=== PATIENT | female | born 1995 | race Caucasian/White ===

== ENCOUNTER 2021-12-28 00:04 | Emergency (ER) | payer OTHER, SELFPAY ==
[2021-12-28 00:27] VITALS: BP 135/82; PULSE 105; RESP 20; TEMP 36.4; O2SAT 99; BMI 32.6
--- NOTE | 2021-12-28 00:48 | CRLHL7_ITS ---
For Patients: As a result of the Century Cures Act, medical imaging exams and procedure reports are released immediately into your electronic medical record. You may view this report before your referring provider. If you have questions, please contact your health care provider. INDICATION: Cough TECHNIQUE: Chest 1 view. COMPARISON: None. FINDINGS: Cardiovascular and mediastinum: Heart size and vasculature are normal in caliber and appearance. Lungs and pleural spaces: Lungs are clear. No sign of infiltrate or mass. No sign of pleural effusion. No pneumothorax. Bones and soft tissues: No significant findings. IMPRESSION: No acute or significant findings. Dictated by Amor Mijares MD @ 12/28/2021 1:45:56 AM (Electronically Signed)
--- NOTE | 2021-12-28 01:02 | ED_ITS ---
HPI - SOB/Dyspnea General Time Seen by Provider: 00:40 Date Seen: 12/28/21 Chief Complaint: Shortness of Breath/Dyspnea Stated Complaint: Respiratory Time Seen by Provider: 12/28/21 00:27 Source: patient, RN notes reviewed and old records reviewed Mode of arrival: ambulatory Limitations: no limitations History of Present Illness HPI Narrative: Alejandra is a very pleasant 26-year-old female vaccinated against COVID otherwise healthy comes to the emergency room for evaluation of cough. Patient notes that this has been going on for approximately 1 week. She initially started with rhinorrhea eyes sore throat and a cough. She feels like she is not getting better today. Today is day 8 of symptoms. She has been using Advil cold and Sinus and DayQuil NyQuil combination and just does not feel any better. She also has loss of taste. She is normally a healthy individual and denies any possibility of . Her son also has similar symptoms that developed 1 day after hers. Patient notes that this evening she was coughing so much she could not catch her breath and this scared her. She states that she feels like she has pneumonia as she has had it before in her life time. She does not get frequently sick and is not a smoker nor does she have asthma. She notes that she is achy and describes her skin hurting. She has had fevers up to 101. MD elicited complaint: shortness of breath and cough Related Data Previous Rx's Medication Instructions Recorded albuterol sulfate 5 mg/mL(0.5 %) 2.5 mg (0.5 mL) INHALATION Q6H PRN 12/28/21 solution for nebulization #30 bottle Allergies Allergy/AdvReac Type Severity Reaction Status Date / Time cefdinir Allergy Severe Anaphylaxis Verified 12/28/21 00:30 levofloxacin [From Levaquin] Allergy Severe Anaphylaxis Verified 12/28/21 00:30 Review of Systems Status of ROS: Reports: 6 or more systems reviewed and unremarkable except as noted in History and below Narrative: Denies a history of hypercoagulable state, recent travel, calf pain or history of DVT or factor 5 in herself or her family. Const: Reports: fever and fatigue Eyes: Denies: change in vision ENMT: Reports: throat pain and hoarseness Cardio: Reports: shortness of breath with exertion; Denies: chest pain, edema or swelling of feet/ankles Resp: Reports: shortness of breath and cough GI: Denies: abdominal pain or vomiting : Denies: painful urination or urinary frequency Endo: Reports: fatigue PFSH PFS Medical History No significant past medical history Surgical History No significant past surgical history Social History Smoking Status: Never smoker Do you use any of these nicotine containing products: None How often do you have a drink containing alcohol: never How often do you have six or more drinks on one occasion: Never AUDIT-C Alcohol total score: 0 Non-prescribed substance use: denies use Exam Const: Vital Signs, click to edit/add: Vital Signs - 24 hr 12/28/21 00:27 12/28/21 02:03 12/28/21 02:12 Temperature 97.6 F 97.6 F 97.6 F Pulse Rate 105 H Pulse Rate [Left P ulse Oximeter] 105 H 95 Respiratory Rate 20 20 20 Blood Pressure 125/78 Blood Pressure [Ri ght Upper Arm] 135/82 125/78 Pulse Oximetry 99 99 Documenting provider has reviewed patient's vital signs: yes Common normals: no apparent distress and oriented x3 General appearance: cooperative Other: Fatigued but nontoxic in appearance. HENMT: Common normals: normocephalic, external ears normal and TM's normal bilaterally Head and scalp: normocephalic Face and sinus: normal facial exam Nose: nares normal External ear: external ears normal Tympanic membrane: TM's normal bilaterally Mouth: oral and palatal mucosa normal Throat: posterior oropharynx abnormal (Slight erythema) Eye: Common normals: PERRL General eye: normal appearance of both eyes Pupil: PERRL Neck & C-Spine: Common normals: full ROM, no lymphadenopathy, supple and no meningeal signs Resp: Common normals: normal respiratory effort and no use of accessory muscles Effort & inspection: no audible wheezes Auscultation: diminished lung sounds (Right lower lung field) on the right Cardio: Common normals: regular rate (90-100) and regular rhythm Rate: regular rate (90-100) Rhythm: regular rhythm GI: Common normals: soft to palpation and non-tender Palpation: soft : Common normals: no CVA tenderness Bladder/kidney exam: no CVA tenderness Back & Pelvis: Common normals: no CVA tenderness Extremity: Common normals: normal to inspection, full ROM, no calf tenderness and no pedal edema Neuro: Common normals: oriented x3 Meningeal signs: no meningeal signs Psych: Common normals: mental status grossly normal Skin: Common normals: no rashes or lesions noted General skin exam: no rashes or lesions noted Course Course Hospital Course: Patient is presenting with 8 days of respiratory and URI symptoms now with increased coughing and production. Patient has had fevers up to 101. Will test patient for COVID as this is strongly suspicious for that. Will also obtain chest x-ray as lung sounds are diminished on the right. With elevated heart rate also consider possible PE the patient has very reassuring O2 saturations as well as negative Wells criteria with no evidence of lower extremity edema calf tenderness history of DVT or hypoxia. Vital Signs Vital signs: Initial Vital Signs Temperature 97.6 F 12/28/21 00:27 Temperature Source Temporal Artery Scan 12/28/21 00:27 Pulse Rate 105 H 12/28/21 00:27 Respiratory Rate 20 12/28/21 00:27 Blood Pressure 135/82 12/28/21 00:27 Blood Pressure Mean 99 12/28/21 00:27 Blood Pressure Position Sitting 12/28/21 00:27 Pulse Oximetry 99 12/28/21 00:27 Oxygen Delivery Method 12/28/21 00:27 Vital Signs Temperature 97.6 F 12/28/21 00:27 Pulse Rate 105 H 12/28/21 00:27 Respiratory Rate 20 12/28/21 00:27 Blood Pressure 135/82 12/28/21 00:27 Pulse Oximetry 99 12/28/21 00:27 Temperature 97.6 F 12/28/21 02:12 Pulse Rate 105 H 12/28/21 02:12 Respiratory Rate 20 12/28/21 02:12 Blood Pressure 125/78 12/28/21 02:12 Pulse Oximetry 99 12/28/21 02:03 MDM - SOB/Dyspnea MDM Narrative Medical decision making narrative: 1. Clinical pneumonia-patient has a clear x-ray but markedly different breath sounds noted on auscultation. She has tested negative for COVID and therefore I will treat with antibiotics. Zithromax 500 mg today followed by 250 mg daily for 4 days. This is through [facility] Would also recommend the use of a nebulizer up to 4 times daily as needed. Handwritten prescription for nebulizer as well as the Adult mask is given to patient. Albuterol 2.5 mg/3 males number 30 sent to [facility]. Return/seek medical attention for worsening symptoms. 2. Disposition-home with . Recommend rest and pushing fluids. Note for no work today or tomorrow. Medical Records Attestation: I reviewed the patient's medical records. Lab Data Attestation: I reviewed the patient's lab results. Labs: Lab Results 12/28/21 Range/Units 00:50 SARS-CoV-2 (PCR) Negative SARS-CoV-2 (Negative) Influenza Type A (PCR) Negative PCR FLU A (Negative) Influenza Type B (PCR) Negative PCR FLU B (Negative) Imaging Data Chest x-ray: Attestation: I have reviewed the pertinent imaging results. My impression: I did not know any acute findings on the chest x-ray. Radiologist's impression: No acute findings Discharge Plan Discharge Clinical Impression: Acute lower respiratory infection Patient Disposition: Home, Self-Care Condition: Unchanged Additional Instructions: Suggest starting Zithromax tonight for the treatment of clinical pneumonia even though your chest x-ray looked clear. Recommend pushing fluids as much as possible. Delsym may be used as needed for cough. If you have ongoing or worsening symptoms return to the emergency room for evaluation and possible blood work. Nebulizer as needed up to 4 times a day for wheezing or coughing. Recommend using this 2 hours prior to bedtime. Activity Level: No Restrictions Prescriptions: New albuterol sulfate 5 mg/mL solution for nebulization 2.5 mg inhalation Q6H PRNQty: 30 0RF Follow Up/Referrals: Provider,Not a Local [Primary Care Provider] - Stand Alone Forms: [employer] Info Instructions
[2021-12-28 01:37] LABS: PCR FLU A Negative PCR FLU A (Negative); PCR FLU B Negative PCR FLU B (Negative)
[2021-12-28 01:40] LABS: SARS PCR* Negative SARS-CoV-2 (Negative)
[2021-12-28 02:03] VITALS: BP 125/78; PULSE 95; RESP 20; TEMP 36.4; O2SAT 99
[2021-12-28 02:12] VITALS: BP 125/78; PULSE 105; RESP 20; TEMP 36.4
== END 2021-12-28 02:12 | disposition home or self-care (01) ==
PROVIDERS: Emergency Provider Family Medicine
DX: J18.9 Pneumonia, unspecified organism (principal)
CPT/HCPCS: 71045; 87502; 87635; 99283; 99284

== ENCOUNTER 2022-08-22 03:37 | Emergency (ER) | payer OTHER, SELFPAY ==
[2022-08-22] VITALS (9 sets, daily range): BP systolic 106–126; BP diastolic 64–82; PULSE 84–108; RESP 16; TEMP 36.7; O2SAT 97–100; BMI 32.6
[2022-08-22 03:59] LABS: Appearance Urine Clear (Clear); Bilirubin Urine Negative (Negative); Blood Urine Trace-intact (Negative); Color Urine Yellow (Yellow); Glucose Urine Negative (Negative); Ketones Urine 1+ (Negative); Leukocyte Esterase Urine Negative (Negative); Nitrite Urine Negative (Negative); Protein Urine 2+ (Negative); Specific Gravity Urine 1.025 (1.000-1.030); Urobilinogen Urine 0.2 (0.2-1.0); pH Urine 6.5 (5.0-8.5)
[2022-08-22] MEDS: 0.9 % SODIUM CHLORIDE 1000 ml 1,000 ML IV (04:02)
[2022-08-22 04:11] LABS: Bacteria Urine Few; Mucus Urine Few; RBC Urine 0-2 (0-2); Squamous Epithelial Cell Urine Few (None-Few)
[2022-08-22 04:43] LABS: PCR FLU A Negative PCR FLU A (Negative); PCR FLU B Negative PCR FLU B (Negative)
[2022-08-22 04:49] LABS: SARS PCR* Negative SARS-CoV-2 (Negative)
[2022-08-22] MEDS: METOCLOPRAMIDE HCL 10 MG in 0.9 % SODIUM CHLORIDE 100 ml 100 ML 306 MG IVPB (05:00)
[2022-08-22] MEDS: LORazepam 2 MG/ML inj 0.5 MG IVP (06:02)
--- NOTE | 2022-08-22 06:20 | ED.GENADULT ---
HPI - General Adult General Chief complaint: Nausea/Vomiting Stated complaint: nausea Time Seen by Provider: 08/22/22 03:42 History of Present Illness HPI narrative: 27-year-old young woman arrives emergency department via EMS due to vomiting. Has not had any fever. She describes the vomiting is intense and aggressive. Started last night. She is approximately 8 weeks and has been nauseated for good portion of the time but not vomited until now. No hematemesis is described. Is not having significant abdominal pain. No shortness of breath. No vaginal bleeding or spotting. No dysuria. Related Data Home Medications Medication Instructions Recorded Confirmed No Known Home Medications 08/22/22 08/22/22 Allergies Allergy/AdvReac Type Severity Reaction Status Date / Time cefdinir Allergy Severe Anaphylaxis Verified 08/22/22 03:43 levofloxacin [From Levaquin] Allergy Severe Anaphylaxis Verified 08/22/22 03:43 [facility] Medical History (Updated 08/22/22 @ 06:29 by Ranjit Vitale MD) Post traumatic stress disorder Surgical History (Updated 08/22/22 @ 03:47 by Trish Plummer RN) History of Social History Smoking Status: Never smoker Do you use any of these nicotine containing products: None How often do you have a drink containing alcohol: never How often do you have six or more drinks on one occasion: Never AUDIT-C Alcohol total score: 0 Non-prescribed substance use: denies use Exam Narrative: Exam Narrative: Makeup in place 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 Blunt or flattened affect. Distracted. Looks uncomfortable. Abdomen is nontender. Soft. Is breathing easily. Oropharynx is sticky. Skin is warm and dry. Lungs clear. Heart in elevated rate with regular rhythm. No murmur rub or gallop identified. Well perfused peripherally. She is not cramping. Const: Vital Signs, click to edit/add: Vital Signs - 24 hr 08/22/22 03:40 08/22/22 04:00 08/22/22 04:02 Temperature 98.1 F Pulse Rate 100 101 H Pulse Rate [Left P ulse Oximeter] 98 Respiratory Rate 16 16 16 Blood Pressure 120/75 114/76 Blood Pressure [Ri ght Upper Arm] 125/81 Pulse Oximetry 98 99 100 Oxygen Delivery Me thod Room Air 08/22/22 04:32 08/22/22 05:02 08/22/22 04:00 Temperature Pulse Rate 89 98 Pulse Rate [Left P ulse Oximeter] Respiratory Rate 16 16 Blood Pressure 118/82 122/71 Blood Pressure [Ri ght Upper Arm] Pulse Oximetry 100 98 Oxygen Delivery Me thod 08/22/22 05:32 08/22/22 06:01 08/22/22 06:31 Temperature Pulse Rate 84 108 H 84 Pulse Rate [Left P ulse Oximeter] Respiratory Rate 16 16 16 Blood Pressure 126/80 106/64 117/73 Blood Pressure [Ri ght Upper Arm] Pulse Oximetry 97 Oxygen Delivery Me thod 08/22/22 06:53 Temperature 98.1 F Pulse Rate Pulse Rate [Left P ulse Oximeter] 98 Respiratory Rate 16 Blood Pressure Blood Pressure [Ri ght Upper Arm] 125/81 Pulse Oximetry Oxygen Delivery Me thod Course Vital Signs Vital signs: Initial Vital Signs Temperature 98.1 F 08/22/22 03:40 Temperature Source Temporal Artery Scan 08/22/22 03:40 Pulse Rate 98 08/22/22 03:40 Pulse Rhythm 08/22/22 03:40 Respiratory Rate 16 08/22/22 03:40 Blood Pressure 125/81 08/22/22 03:40 Blood Pressure Mean 95 08/22/22 03:40 Blood Pressure Position Sitting 08/22/22 03:40 Pulse Oximetry 98 08/22/22 03:40 Oxygen Delivery Method 08/22/22 03:40 Vital Signs Temperature 98.1 F 08/22/22 03:40 Pulse Rate 98 08/22/22 03:40 Respiratory Rate 16 08/22/22 03:40 Blood Pressure 125/81 08/22/22 03:40 Pulse Oximetry 98 08/22/22 03:40 Oxygen Delivery Method 08/22/22 03:40 Temperature 98.1 F 08/22/22 06:53 Pulse Rate 98 08/22/22 06:53 Respiratory Rate 16 08/22/22 06:53 Blood Pressure 125/81 08/22/22 06:53 Pulse Oximetry 97 08/22/22 06:01 Oxygen Delivery Method 08/22/22 03:40 Medical Decision Making MDM Narrative Medical decision making narrative: Given Zofran, normal saline IV. Still with nausea given Reglan piggyback. Appears to me that this is vomiting in or possible infectious gastritis I just do not feel right. Alternating hot and cold she said and still quite nauseated as standing hunched over semi seated on the bed. Did review records. PTSD is in diagnosis as well. Lorazepam IV ultimately appeared to be most effective. Tolerated apple juice, Manny crackers and felt she could depart home. Lab Data Lab results reviewed: Yes I reviewed the patient's lab results Labs: Lab Results 08/22/22 08/22/22 Range/Units 03:50 04:00 Urine Color Yellow (Yellow) Urine Appearance Clear (Clear) Urine pH 6.5 (5.0-8.5) Ur Specific [place] 1.025 (1.000-1.030) Urine Protein 2+ A (Negative) Urine Glucose (UA) Negative (Negative) Urine Ketones 1+ A (Negative) Urine Blood Trace-intact A (Negative) Urine Nitrite Negative (Negative) Urine Bilirubin Negative (Negative) Urine Urobilinogen 0.2 (0.2-1.0) Ur Leukocyte Esterase Negative (Negative) Urine RBC 0-2 (0-2) Urine WBC 2-5 (0-5) Ur Squamous Epith Cells Few (None-Few) Urine Bacteria Few A (None) Urine Mucus Few A (None) SARS-CoV-2 (PCR) Negative SARS-CoV-2 (Negative) Influenza Type A (PCR) Negative PCR FLU A (Negative) Influenza Type B (PCR) Negative PCR FLU B (Negative) Discharge Plan Discharge Clinical Impression: Vomiting during , Dehydration Patient Disposition: Home w/ Parent or Adult Condition: Improved Additional Instructions: Focus on hydration. Jell-O. Popsicles. Slow advance of diet over the next 24-36 hours. Diluted juices, soup broths. Then thicker soups. Rice. [place]. Crackers. Urine culture is pending here. Aminta from [employer]. Prescriptions: No Action No Known Home Medications Follow Up/Referrals: Provider,Not a Local [Primary Care Provider] - Stand Alone Forms: [facility] Info Instructions
== END 2022-08-22 07:02 | disposition home or self-care (01) ==
PROVIDERS: Emergency Provider Family Medicine
DX: R11.10 Vomiting, unspecified (principal); Z3A.08 8 weeks gestation of pregnancy; E86.0 Dehydration
CPT/HCPCS: 81001; 81003; 81015; 87086; 87631; 94761; 96365; 96375; 99283; 99284; J2060; J2765; J7030

== ENCOUNTER 2025-03-16 10:25 | Emergency (ER) | payer OTHER, SELFPAY ==
--- OUTSIDE RECORDS SUMMARY | 2025-03-15 15:10 | XMS_ITS | Encounter Summary ---
Author Organization [facility] Address [address], [place] [address] Care Team Providers Care Nuclear Auxiliary Operator Name Role Phone No Primary/Referring, Phy Primary Care Provider Unavailable Reason for Visit * Reason Comments Forms/Letter Entered automaticall y based on patient selection in [address] Encounter Details Date Type Department Care Team (Late st Contact Info) Description 03/15/2025 3:10 PM CDT E-Visit [facility] [address] [place] [id number] Shannan Turner APRN, DEDE [address] [place] [address] Chief Comp: Forms/Letter Social History Tobacco Use Types Packs/Day Years Used Date Smoking Tobacco: Never Smokeless Tobacco: Never Alcohol Use Standard Drinks/Week Comments Not Currently 0 (1 standard drink = 0.6 oz pur e alcohol) social PHQ-2 Answer Date Recorded PHQ-2 Score 3 06/29/2020 Depression Answer Date Recor ded Last EPDS Total Score 24 07/18/2024 Last EPDS Self Harm Result Not on file 07/18 Comments No Sex and Gender Information Value Date Recorded Sex Assigned at Not on file Legal Sex Female 11:56 AM TAILING HAND Gender Identity Not on file Sexual Orientation Not on file 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 If she is establishing care, she needs to be seen in person and for screened by RNs for 1st OB. D. BANDAR Turner CNM documented in this encounter Plan of Treatment Upcoming Encounters Date Type Department Care Team (Late st Contact Info) Description 03/18/2025 2:20 PM CDT Telemedicine [facility] [address] [place] [address] Shannan Turner APRN, CNM [address] [place], [place] [id number] documented as of this encounter Visit Diagnoses Not on filedocumented in this encounter Care Teams Nuclear Auxiliary Operator Relationship Specialty Start Date End Date No Primary/Referring, Phy PCP - General 10/31/18 documented as of this encounter
--- OUTSIDE RECORDS SUMMARY | 2025-03-16 10:28 | XMS_ITS | Clinical Summary ---
Author Organization [facility] Address [address] [place] [id number] Care Team Providers Care Embroidery Worker Name Role Phone Pcp, No Primary Care Provider Unavailabl e Allergies Active Allergy Reactions Criticality Noted Date Comments Cefazolin Anaphylaxis High 07/03/2018 Levofloxacin Anaphylaxis,*Unknown ,*Unk nown - Follow up needed High 11/01/2015 Couldn't hear or see Medications No known medications Active Problems Problem Noted Date Diagnosed Date Regular astigmatism of both eyes 08/01/2023 Social History Tobacco Use Types Packs/Day Years Used Date Smoking Tobacco: Never Smokeless Tobacco: Never Comments No Sex and Gender Information Value Date Recorded Sex Assigned at Not on file Legal Sex Female 10:08 AM CDT Gender Identity Not on file Sexual Orientation Not on file Obstetrics History Last Filed Vital Signs Vital Sign Reading Time Taken Comments Blood Pressure 134/90 05/06/2016 11:24 AM SCRAP PREPARATION SUPERVISOR Pulse 82 05/06/2016 11:24 AM SCRAP PREPARATION SUPERVISOR Temperature 37.1 C (98.8 F) 05/06/2016 11:24 AM SCRAP PREPARATION SUPERVISOR Respiratory Rate 14 05/06/2016 11:24 AM SCRAP PREPARATION SUPERVISOR Oxygen Saturation 95% 05/06/2016 11:24 AM SCRAP PREPARATION SUPERVISOR Inhaled Oxygen Concentration - - Weight - - Height - - Body Mass Index - - Plan of Treatment Health Maintenance Due Date Last Done Comments Tetanus booster 2004 Depression screening for age 12+ 2005 HIV for age 15-65 2008 BMI (ht and wt on same day) for age 18+ 2011 Hepatitis C screening for ag e 18-79 2011 Hepatitis B series for 19+ ( 1 of 3 - 19+ 3-dose series) 2012 Pap test for age 21-65 2014 HPV series for age 9-45 (1 - 3-dose SCDM series) 2020 COVID-19 vaccine series (2023- season) 2025 Influenza Vaccine (#1) 2025 RSV vaccine for adults or (1 - 1-dose 75+ series) 2068 Pneumococcal series for age 6-49 Aged Out No longer eligible based on patient's age to complete this topic Insurance [id number] [id number] Care Teams Embroidery Worker Relationship Specialty Start Date End Date Pcp, No . PCP - General 12/14/15
--- OUTSIDE RECORDS SUMMARY | 2025-03-16 10:28 | XMS_ITS | Clinical Summary ---
Author Organization [facility] Address [address] [place] [address] Care Team Providers Care Cardiopulmonary Specialist Name Role Phone [facility] Primary Care Provider Shari Davis MD Unavailable ProviderCarie MD Unavailable Unavailable Allergies Active Allergy Reactions Criticality Noted Date Comments Cefazolin Anaphylaxis High 07/03/2018 Cefprozil Anaphylaxis,Difficul ty breathing High 10/31/2018 Cefuroxime 02/05/2020 Cephalexin Unknown 11/01/2015 Couldn't see of hear Levofloxacin Anaphylaxis,Other (S ee Comments),Difficulty breathing,Unknown High 11/01/2015 Couldn't hear or see Couldn't hear or see Medications vitamin iron-folic acid 27mg-0.8mg ( S) 27 mg iron- 800 mcg Tab tablet [ VITAMIN IRON-FOLIC ACID 27MG-0.8MG ( S) 27 MG IRON- 800 MCG TAB TABLET] Take 1 tablet by mouth daily. 1 Active acetaminophen (TYLENOL) 325 MG tabletIndication s:Delivery by emergency section Take 1-2 tablets (325-650 mg) by mouth every 6 hours as needed for mild pain 3 Active ibuprofen (ADVIL/MOTRIN) 800 MG tabletIndication s:Previous delivery, antepartum condition or complication Take 1 tablet (800 mg) by mouth every 6 hours 60 tablet 1 3 Active oxyCODONE (ROXICODONE) 5 MG tabletIndication s:Previous delivery, antepartum condition or complication Take 1-2 tablets (5-10 mg) by mouth every 6 hours as needed for moderate to severe pain 16 tablet 10/28/202 3 Active Additional Information Patient not taking.Reported on 12/18/2023 simethicone (MYLICON) 80 MG chewable tabletIndication s:Previous delivery, antepartum condition or complication Take 1 tablet (80 mg) by mouth 4 times daily as needed for other (gas) 3 Active Additional Information Patient not taking.Reported on 12/18/2023 senna-docusate (SENOKOT-S/PERIC OLACE) 8.6-50 MG tabletIndication s:Previous delivery, antepartum condition or complication Take 2 tablets by mouth 2 times daily as needed for constipation 3 Active Additional Information Patient not taking.Reported on 12/18/2023 fluticasone (FLONASE) 50 MCG/ACT nasal sprayIndications :Acute bronchitis, unspecified organism [place] 1 spray into both nostrils daily 9.9 mL 4 Active Active Problems Problem Noted Date Diagnosed Date Previous delivery, antepartum condition or complication 04/06/2023 Anxiety 04/06/2023 Obesity affecting in third trimester 0 10/04/2020 delivery delivered 10/03/2020 Preeclampsia, unspecified trimester 09/30/2020 Resolved Problems Problem Noted Date Diagnosed Date Resolved Date 09/30/2020 10/03/2020 Immunizations Immunization Administration Dates Next Due COVID-19 Monovalent 12+ (Pfizer 2021) 07/27/2021 ,07/07/2021 DTAP (<7y) 05/15/1995, 4,1993,05/24 HPV9 (Gardasil) 09/15/2008,03/01/2008,12/23/2007 Hepatitis B, Peds (Engerix-B/Recombivax HB) 1993,1993,1993 Influenza Vaccine >6 months,quad, PF 04/06/2023, 03/24/2020,02/25/2020 MMR (MMRII) 01/16/2006,09/04/1994 Meningococcal ACWY (Menactra ) 01/16/2006 Meningococcal Mcv4 Conjugate,unspecified 01/16/2006 Poliovirus, inactivated (IPV) 05/15/1995 ,03/22/1994,1993,05/24 TDAP (Adacel,Boostrix) 01/14/2023,07/04/2020 Varicella (Varivax) 09/14/2002 Social History Tobacco Use Types Packs/Day Years Used Date Smoking Tobacco: Never Smokeless Tobacco: Never Alcohol Use Standard Drinks/Week Comments Not Currently 0 (1 standard drink = 0.6 oz pur e alcohol) [place] Depression Scale Answer Date Recorded Last EPDS Total Score Not on file 04/06/2023 The thought of harming myself has occurred to me . Never 04/06/2023 Adolescent Education Answer Date Record ed Getting School Help Needed Not on file 03/02 Interpersonal Safety Answer Date Record ed Do you feel physically and e motionally safe where you currently live? Yes 12/18/2023 Within the past 12 months, h ave you been hit, slapped, kicked or otherwise physically hurt by someone? No 12/18/2023 Within the past 12 months, h ave you been humiliated or emotionally abused in other ways by your partner or ex-partner? No 12/18/2023 Comments No Sex and Gender Information Value Date Recorded Sex Assigned at Not on file Legal Sex Female 10:48 PM CDT Gender Identity Not on file Sexual Orientation Not on file Last Filed Vital Signs Vital Sign Reading Time Taken Comments Blood Pressure 130/86 12/18/2023 1:33 PM CDT Pulse 91 12/18/2023 1:33 PM CDT Temperature 36.7 C (98.1 F) 12/18/2023 1:33 PM CDT Respiratory Rate 16 12/18/2023 1:33 PM CDT Oxygen Saturation 97% 12/18/2023 1:33 PM CDT Inhaled Oxygen Concentration - - Weight 84.4 kg (186 lb) 12/18/2023 1:33 PM CDT Height 162.6 cm (5' 4) 12/18/2023 1:33 PM CDT Body Mass Index 31.93 12/18/2023 1:33 PM CDT Plan of Treatment Health Maintenance Due Date Last Done Comments ADVANCE CARE PLANNING 1993 ANNUAL REVIEW OF HM ORDERS 1993 YEARLY PREVENTIVE VISIT 10/05/2017 10/05/2016 PAP 02/24/2023 02/25/2020 PHQ-2 (once per calendar year) 2024 COVID-19 VACCINE ( season) 2025 07/27/2021, 07/07/2021 INFLUENZA VACCINE (#1) 2025 , 03/24/2020, 02/25/2020 DTAP/TDAP/TD VACCINE (7 - Td or Tdap) 01/14/2033 01/14/2023, 07/04/2020, 05/15/1995, Additional history exists ZOSTER VACCINE (1 of 2) 2043 HEPATITIS B VACCINE Completed 1993, 1993, 1993 MENINGITIS VACCINE Aged Out 01/16/2006, 01/16/2006 No longer eligible based on patient's age to complete this topic HPV VACCINE Completed 09/15/2008, 02/09, 12/23/2007 HEPATITIS C SCREENING Completed 07/04/2020 HIV SCREENING Completed 08/30/2022, 02/25/2020 PNEUMOCOCCAL VACCINE: PEDIATRICS (0 to 5 YEARS) AND AT-RISK PATIENTS (6 to 49 YEARS) Aged Out No longer eligible based on patient's age to complete this topic Procedures Procedure Name Priority Date/Time Associated Diagnosis Comments HIV 1&2 ANTIBODY (EXTERNAL RESULT) Routine 08/30/2022 9:00 AM CDT from Last 3 Months or Most Recently Relevant to Health Maintenance Results * HIV-1 Antibody (External Result) (08/30/2022 9:00 AM CDT) HIV 1&2 Antibody (External) Nonreactive Nonreactive [facility] 08/30/2022 9:00 AM CDT us Patient Reported LAB - HIM EXTERNAL RESULT Final Result NA [facility]AT[facility] - [address] Lab - Room [address] [place] [address], [facility] [phone] from Last 3 Months or Most Recently Relevant to Health Maintenance [facility] [place] Advance Directives For more information, please contact: [phone] * Full Code (Latest Code Status on File) Date Activated Date Inactivated Comments 04/03/2023 3:10 PM 04/06/2023 2:55 PM All basic and advanced life-sustaining interventions are performed as appropriate Question Answer Comments Code status determined by: Discussion with patie nt/ legal decision maker Care Teams Cardiopulmonary Specialist Relationship Specialty Start Date End Date Clinic, [place], [place] PCP - General 02/06/20 Shari Davis MD [address] [place] [address] replacer 04/12/23 ProviderCarie MD Assigned PCP 03/02/24
--- OUTSIDE RECORDS SUMMARY | 2025-03-16 10:28 | XMS_ITS | Clinical Summary ---
[facility] Organization [facility] Address [address] [place] [address] Care Team Providers Care Front Desk Attendant Name Role Phone No Primary/Referring, Phy Primary Care Provider Unavailable Source Comments You are receiving this document as you are listed as the primary care provider,follow-up provider, or the patient has been referred to you for consultation.This is in compliance with the Medicare and[facility] EHR Incentive Program,which states Providers who transition their patient to another setting of careor provider of care or refers their patient to another provider of care shouldprovide summary care record for each transition of care or referral. [employer] Allergies Active Allergy Reactions Criticality Noted Date Comments Cefuroxime 02/05/2020 Cefprozil Breathing Difficulty High 10/31/2018 Cephalexin Unknown 11/01/2015 Couldn't see of hear Levofloxacin Breathing Difficulty High 10/31/2018 Levofloxacin Unknown 11/01/2015 Couldn't hear or see Medications Vit-Fe Fumarate-FA ( VITAMINS OR) Active Active Problems Problem Noted Date Diagnosed Date Normal in third trimester 09/26/2020 Edema during in third trimester 2020 COVID-19 affecting in second trimester 09/26/2020 Personal history of COVID-19 07/27/2020 Memory difficulties 07/27/2020 Acute midline low back pain 05/31/2020 History of fainting spells of unknown cause 05/11 Supervision of high risk in third trim dane 04/07/2020 COVID-19 virus infection 04/07/2020 Obesity in 02/25/2020 Maternal mental disorder, antepartum 02/25/2020 Anxiety and depression 02/25/2020 PTSD (post-traumatic stress disorder) 02/25/2020 Situational stress 02/25/2020 Resolved Problems Problem Noted Date Diagnosed Date Resolved Date Careplan: [facility] 04/12/2020 10/28/2020 Overview (04/12/2020): This patient is enrolled in the [facility]nings Program. The program provides patients with support, education, referrals and resources during their . Reason for enrollment: Connections to resources Next urine drug screen: For more information, please contact Shalonda Apodaca, [facility]nings Specialist, at [phone]. Encounters Date Type Department Care Team Description 03/15/2025 3:10 PM CDT E-Visit [facility] [address] [place] [phone] Shannan Turner, CREAMERY WORKER, CNM Chief Comp: Forms/Letter from Last 3 Months Immunizations Immunization Administration Dates Next Due 4vHPV (Gardasil) 09/15/2008,03/01/2008, 8 DTaP 05/15/1995, 4,1993,05/24 HepB Ped/Adol (0-18 yrs) 1993,1993,1 06/18/1992 IPV (Polio) 05/15/1995, 4,1993,05/24 Influenza IIV4 (Quadrivalent ) 0.5mL (36833) 02/25/2020 MMR 01/16/2006,09/04/1994 Meningococcal MCV4, Unspecif ied Formulation 01/16/2006 Tdap 07/04/2020 Varicella 09/14/2002 Family History Medical History Relation Name Comments Diabetes Maternal Grandfather High Cholesterol Maternal Grandfather Cancer Maternal Grandmother Cancer Paternal Grandfather Cancer, Breast Paternal Grandmother Relation Name Status Comments Father Alive Mother Alive Brother Alive Maternal Grandfather Alive Maternal Grandmother Paternal Grandfather Paternal Grandmother Alive Sister Alive Social History Tobacco Use Types Packs/Day Years [...] on file Legal Sex Female 11:56 AM SCHOOL MANAGER Gender Identity Not on file Sexual Orientation Not on file 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 Not 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 Not on file Not on file Last Filed Vital Signs Vital Sign Reading Time Taken Comments Blood Pressure 116/83 04/13/2022 10:06 AM CDT Pulse 75 04/13/2022 10:06 AM CDT Temperature 36.2 C (97.1 F) 07/27/2020 11:10 AM SCHOOL MANAGER Respiratory Rate 20 04/13/2020 3:02 PM SCHOOL MANAGER Oxygen Saturation 97% 06/29/2020 1:07 PM SCHOOL MANAGER Inhaled Oxygen Concentration - - Weight 88.9 kg (196 lb) 04/13/2022 10:06 AM CDT Height 165.1 cm (5' 5) 04/13/2022 10:06 AM CDT Body Mass Index 32.62 04/13/2022 10:06 AM CDT Plan of Treatment Upcoming Encounters Date Type Department Care Team (Late st Contact Info) Description 03/18/2025 2:20 PM CDT Telemedicine [facility] [address] [place] [phone] Shannan Turner, CREAMERY WORKER, CNM [address] [place] [address] Health Maintenance Due Date Last Done Comments Adult Preventive Visit 10/05/2018 10/05/2016 Cervical Cancer Screening 02/24/2023 02/25/2020 COVID-19 Vaccine ( season) 2025 07/27/2021, 07/07/2021 Influenza Vaccine (#1) 2025 3, 03/24/2020, 02/25/2020 DTaP/Tdap/Td Vaccine (7 - Tdap) 01/14/2033 01/14/2023, 07/04/2020, 05/15/1995, Additional history exists Zoster/Shingles Vaccine (1 of 2) 2043 HepB Vaccine Completed 1993, 05/10, 1993 IPV (Polio) Vaccine Completed 05/15/1995, 03/22/1994, 1993, Additional history exists MCV4 Vaccine Aged Out 01/16/2006 No longer eligi ble based on patient's age to complete this topic HPV Vaccine Completed 09/15/2008, 02/09, 12/23/2007 HIV Screening (Preventive Services) Completed 02/25/2020 Hep C Screening (Preventive Services) Completed 07/04/2020 HepA Vaccine Aged Out No longer eligi ble based on patient's age to complete this topic Hib Vaccine Aged Out No longer eligi ble based on patient's age to complete this topic Meningococcal B Vaccine Aged Out No l onger eligible based on patient's age to complete this topic Pneumococcal Vaccine Aged Out No long er eligible based on patient's age to complete this topic Procedures Procedure Name Priority Date/Time Associated Diagnosis Comments HEPATITIS C ANTIBODY, WITH REFLEX (ANTI-HCV) Routine 07/04/2020 10:17 AM SCHOOL MANAGER Supervision of high risk in second trimester CYTOLOGY (PAP) Routine 02/25/2020 2:42 PM CDT Pap smear for cervical cancer screening HIV 1/2 AG/AB 4TH GEN Routine 02/25/2020 2:32 PM CDT Screening examination for venereal disease from Last 3 Months or Most Recently Relevant to Health Maintenance Results * Hepatitis C Antibody, with Reflex (07/04/2020 10:17 AM SCHOOL MANAGER) Hepatitis C Antibody Negative (Non Reactive) Negative (Non Reactive) 07/04/2020 4:27 PM SCHOOL MANAGER [facility] Comment:Antibodies to HCV no t detected. Does not exclude the possiblity of exposure to HCV. Blood Venipuncture / Unknown 07/04/2020 10:17 AM SCHOOL MANAGER 07/04/2020 10:17 AM SCHOOL MANAGER us Chyna Winston DO LAB_1 Final Resu lt [facility] [address] [place] [address], [facility] * PAP Test (02/25/2020 2:42 PM CDT) Case Report Pap Case: [id number] Authorizing Provider: Erika Trevion APRN, KAREN Collected: 02/25/2020 1442 Ordering Location: [facility] Received: 02/25/2020 1521 Services-SILK SCREEN PRINTER First Screen: Nault, Meri E, CT (ASCP) Specimen: Pap Test, Routine, Cervix/Endocervix 03/01/2020 3:03 PM CDT [facility] Pap Specimen Adequacy Satisfactory for evaluation, endocervical/mayes sformation zone component present. 03/01/2020 3:03 PM CDT [facility] Pap Interpretation Negative for intraepithelial lesion or malignancy (NILM). 03/01/2020 3:03 PM CDT [facility] at 1503 CDT Pap Disclaimer The Pap test is a screening test designed to aid in the detection of cervical cancer and its precursor lesions. It is not a diagnostic procedure and should not be used as the sole means of detecting cervical cancer. Both false-positive and false-negative results may occur. 03/01/2020 3:03 PM CDT [facility] Gross Description The specimen is received in SurePath fixative and properly labeled. 1 Pap-stained SurePath slide is prepared. 03/01/2020 3:03 PM CDT [facility] Embedded Images 0 3:03 PM CDT [facility] Other Specimen Type ENTIRE ENDOCERVIX / Unknown 02/25/2020 2:42 PM CDT 02/25/2020 3:21 PM CDT Comment:LMP: Patient's last menstrual period was 12/25/2019 (exact date). us Erika Trevino APRN, KAREN LAB PATHOLOGY Final R esult Performing Organization Address City/[facility]/ZIP Co de Phone Number [facility] [address] * HIV 1/2 Ag/Ab 4th Generation (02/25/2020 2:32 PM CDT) HIV 1/2 Antigen/Antib berto (4th generation) Negative (Non Reactive) Negative (Non Reactive) 02/25/2020 7:07 PM CDT [facility] Comment:HIV-1 p24 Antigen an d HIV-1/HIV-2 Antibody not detected Blood Venipuncture / Unknown 02/25/2020 2:32 PM CDT 02/25/2020 2:32 PM CDT us Erika Trevino APRN, CABIN CREW LAB_1 Final R esult Performing Organization Address [facility] [[email or web address]] Co de Phone Number [facility] [address] [place] [address] from Last 3 Months or Most Recently Relevant to Health Maintenance Insurance SELF INSURED SELF INSURED * Guarantor: [facility] Account Type Relation to Patient Date of Phone Billing Address Company Account Employer [id number] [facility] ATTN: [place] [address] [employer] [facility] Care Teams Front Desk Attendant Relationship Specialty Start Date End Date No Primary/Referring, Phy PCP - General 10/31/18
[2025-03-16 10:34] VITALS: BP 142/97; PULSE 84; RESP 18; TEMP 37; O2SAT 100; BMI 30.9
--- NOTE | 2025-03-16 11:02 | ED_ITS ---
HPI - General Adult General Time Seen by Provider: 11:07 Date Seen: 03/16/25 Chief complaint: Unspecified Complaint, Adult Stated complaint: Mental Health Time Seen by Provider: 03/16/25 11:02 Source: patient and RN notes reviewed Mode of arrival: ambulatory Limitations: no limitations History of Present Illness HPI narrative: This 29-year-old female is coming into the ER requesting FMLA paperwork be done. She states she has a disabled that is currently working in [employer] at the [employer]. She states she cannot get an appointment until June. She states that no one is helping her, she does have restricted care on questioning [facility] she needs her FMLA paperwork to be done, she states she cannot do the work that they are putting her way. She states she has been denied this from there. She denies suicidality, denies homicidality, has no suicide plan. She is not on any medicines for depression or anxiety, made a statement that she needs to feel better for before being on them. She definitely is upset and angry talking about this. I have reviewed with her that I do not have any history on her, I am not a treating physician and not a treating physician for any of her conditions. Medical legally speaking, it is absolutely inappropriate for me to do any FMLA paperwork. I have discussed with her that I am concerned about her mental health, I can do an evaluation for her mental health through telehealth. She is declining this at this time. She ultimately wants her FMLA paperwork filled out which I cannot provide. She does agree that her work is overwhelming, causing increased stress and anxiety. She does not feel she can function at work right now. Discussed with patient that we are certainly happy to try to get her an appointment quicker, do feel we probably could do that through our system but she has to get approval for this. Related Data Home Medications ?Medication ?Instructions ?Recorded ?Confirmed No Known Home Medications 03/16/2501/01 Allergies Allergy/AdvReac Type Severity Reaction Status Date / Time cefdinir Allergy Severe Anaphylaxis Verified 03/16/25 10:45 levofloxacin (From Levaquin) Allergy Severe Anaphylaxis Verified 03/16/25 10:45 [facility] Medical History Pharyngitis ?J02.9 - Acute pharyngitis, unspecified (ICD-10) Bronchitis ?J40 - Bronchitis, not specified as acute or chronic (ICD-10) Strep pharyngitis ?J02.0 - Streptococcal pharyngitis (ICD-10) Post traumatic stress disorder ?F43.10 - Post-traumatic stress disorder, unspecified (ICD-10) Surgical History History of ?Z98.891 - History of uterine scar from previous surgery (ICD-10) Social History Smoking Status: Never smoker Do you use any of these nicotine containing products: None How often do you have a drink containing alcohol: never How often do you have six or more drinks on one occasion: Never AUDIT-C Alcohol total score: 0 Non-prescribed substance use: denies use Exam Const: Vital Signs, click to edit/add: Vital Signs - 24 hr 03/16/25 10:34 Temperature 98.6 F Pulse Rate [Right Pulse Oximeter] 84 Respiratory Rate 18 Blood Pressure [Ri ght Upper Arm] 142/97 H Pulse Oximetry 100 Oxygen Delivery Me thod Room Air Course Course ED Course: Did contact our patient advocate, will have Viri come down and talk to the patient. Viri did bring up social media marketer, she will talk to the patient about telehealth again. I am more than happy to provide this patient with care but definitely does not equate to caring for this patient. His medical legally not appropriate for me to provide this patient with [facility] as I have no ongoing relationship with her, no ongoing treating condition with her. This is an emergency room in [facility] does not constitute an emergency. We certainly will try to provide her with other avenues to pursue. Reevaluation(s) Time of Reevaluation #1: 12:44 Reevaluation #1: Patient is much calmer. Both social media marketer and patient advocate I have worked with her. There is a list of phone numbers and services that Viri was able to provide. These are for copied into her chart. We also did get her an appointment in clinic, I have reviewed with her that I would not go into that meeting expecting the [facility] paperwork to be filled out. He does not know her, he does not know her history. He may need records, she can attempt to get any records that may be beneficial to help. I understand her frustration with the limits of the system she is in. She did tell me that she had a 9:00 a.m. mental health appointment prior to coming here. They told her to just essentially keep trying. She states she does not trust the system, she wants to be able to be away from work at this time and I do understand that. I have given her couple days off of work, urged her to start calling some of the programs that were provided to her. Consultations Consultation #1: Viri our patient advocate did speak with her. She talked to her about telehealth services here, patient did not want to tell her story to someone again. She is very focused on FMLA paperwork. 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 Viri feel she is suffering from PTSD symptoms. Patient states [facility] needs [facility]. They do not have appointments for her, will not get her psychiatric appointments. She did provider information [facility], patient states she did not want to be put on hold and was hesitant about that. Viri is going to talk to social media marketer. We seem to be back at her wanting us to comply with providing FMLA paperwork. Again, I stand firm that as an ED physician meeting her for a brief time, it is not appropriate for me to do FMLA paperwork. I have no ongoing relationship with this patient and would not consider myself a ongoing treating physician. Time: 11:45 Vital Signs Vital signs: Initial Vital Signs Temperature 98.6 F 03/16/25 10:34 Temperature Source Temporal Artery Scan 03/16/25 10:34 Pulse Rate 84 03/16/25 10:34 Pulse Rhythm Regular 03/16/25 10:34 Pulse Strength 3+ Normal 03/16/25 10:34 Respiratory Rate 18 03/16/25 10:34 Blood Pressure 142/97 H 03/16/25 10:34 Blood Pressure Mean 112 H 03/16/25 10:34 Blood Pressure Position Sitting 03/16/25 10:34 Pulse Oximetry 100 03/16/25 10:34 Oxygen Delivery Method Room Air 03/16/25 10:34 Vital Signs Temperature 98.6 F 03/16/25 10:34 Pulse Rate 84 03/16/25 10:34 Respiratory Rate 18 03/16/25 10:34 Blood Pressure 142/97 H 03/16/25 10:34 Pulse Oximetry 100 03/16/25 10:34 Oxygen Delivery Method Room Air 03/16/25 10:34 Temperature 98.6 F 03/16/25 10:34 Pulse Rate 84 03/16/25 10:34 Respiratory Rate 18 03/16/25 10:34 Blood Pressure 142/97 H 03/16/25 10:34 Pulse Oximetry 100 03/16/25 10:34 Oxygen Delivery Method Room Air 03/16/25 10:34 Discharge Plan Discharge Clinical Impression: Mental health disorder Patient Disposition: Home, Self-Care Condition: Stable Instructions: PTSD (Post Traumatic Stress Disorder) (ED), Suicide Prevention (ED) Additional Instructions: Follow up appointment is scheduled at the [facility] on 03/18 with a 9:15am appointment time. Please arrive at 9am to discuss [place] paperwork. If you have any questions or need to reschedule, please call [phone]. [address] [place] [address] Please utilize the phone numbers an outside services that Viri provided you. Would try to contact some of these organizations or programs that she gave you, they may be able to assist you further. I would use the next 2 days off that I have provided to make those phone calls and attempt to contact the organizations. Prescriptions: No Action No Known Home Medications Follow Up/Referrals: Provider,Not a Local [Primary Care Provider, Family Practice] Stand Alone Forms: [facility]School [facility], [facility] Info Instructions
--- NOTE | 2025-03-16 14:32 | PC.SOCIAL ---
Social Service Consult: paste up worker met with the pt in the ED to provide [place] resources. Pt is a 100% Disabled [place] with the [employer] in [place] and also works at the [employer] in . Pt's main reason for coming to the ED today was to get FMLA paperwork filled out. Pt was frustrated that the ED physician would not fill out the FMLA paperwork for her; therefore, the hospital's patient advocate was also involved with this case. Pt states that she cannot get an appointment with her PCP through the [facility] until June and she needs her FMLA paperwork filled out by this Saturday or she will lose her job. After talking with the pt further is was found that she has [employer] as her primary insurance and she would be willing to see a provider from one of the clinics associated with [facility] to see if that provider would be willing to complete the FMLA paperwork for her. paste up worker stated that we could not guarantee that the clinic physician would complete the FMLA paperwork, but the pt still wanted to try this. The OPERATING ROOM TECH in the ED was able to get an appointment for the pt this at 9:00am with Dr. Pool at the [facility](pt also lives in [place]). This social media designer and the patient advocate also provided the pt with many resources for in and around [facility] where the pt lives. The pt was thankful for this information and pleased with this plan. Social work to follow-up as needed.
--- NOTE | 2025-03-16 14:46 | PC.SOCIAL ---
Social work consult: utility service worker met with the pt in the ED to share resources. 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 Pt states that she needs to take some time off of work for her mental health and PTSD. Pt states that she needs the FMLA paperwork filled out by this Saturday or she is going to lose her job at the [employer]. Pt was frustrated that she could not come into the ED and have the FMLA paperwork filled out, so the hospital's Patient Advocate was also involved in this case. After talking with the pt more and finding out that she has [employer] for her primary insurance, the B[employer]ING[employer] SAL[employer] in the ED was able to get the pt an appointment this the at 9:00am at [facility] with Dr. Pool. Pt plans to talk to Dr. Pool about getting her FMLA paperwork filled out and also plans to establish and continue care with him as her PCP. utility service worker plans to call over to Dr. Pool and/or his nurse to give them some background information about the pt before her appointment on . This social sciences department chair and the patient advocate also provided the pt with many resources in and around [facility]. By then end of the session, the pt was feeling more hopeful and was pleased with the plan. utility service worker also provided the pt with this worker's contact information if she has more questions or concerns in the future. Social work to follow-up as needed.
== END 2025-03-16 12:58 | disposition home or self-care (01) ==
PROVIDERS: Emergency Provider Family Medicine
DX: F99 Mental disorder, not otherwise specified (principal); Z02.89 Encounter for other administrative examinations
CPT/HCPCS: 99282; 99283